=== PATIENT | female | born 1965 | race Caucasian/White ===

== ENCOUNTER 2016-10-16 09:41 | Inpatient (IN) | payer OTHER ==
[2016-10-16] VITALS (20 sets, daily range): BP systolic 95–155; BP diastolic 64–93; PULSE 56–90; RESP 13–27; Ht 160 cm; Wt 83.7 kg
[~2016-10-16] VITALS: Ht 160 cm; Wt 83.7 kg
[~2016-10-16 09:41] MED LIST: CEFAZOLIN 2 GM/50 ML (PMX) 50 ML IVPB SCH; CIPR500T4 PO; HYD25 PO; HYDR-906 PO; METO-448 PO; ONDA4TAB8 PO; SOD CHLORIDE 0.9% 1,000 ML IV SCH
--- NOTE | 2016-10-16 11:28 | RADRPT ---
PROCEDURE: XR Chest. CLINICAL INDICATION: Preop chest x-ray for cholelithiasis. TECHNIQUE: Single frontal view of the chest was obtained COMPARISON: Chest x-ray 04/27/2016. FINDINGS: The soft tissues are normal. The bony elements are normal. The cardiomediastinal silhouette, pulmo nary vasculature and hilar structures are normal. There is a left-sided aorta. The lungs are clear. The costophrenic angles are normal. IMPRESSION: 1. Normal stable chest x-ray with no evidence of active cardiopulmonary disease. RPTAT:AAJJ Physician Missy Date Time Electronically viewed and signed by Kevin Hinojosa Physician on 10/16/2016 11:28 BENI/
[2016-10-16 11:29] LABS: ADD SCAN DIFF NO
[2016-10-16] MEDS ORDERED: ACETAMINOPHEN 1000MG/100ML IV 100 ML IVPB PRN (11:30)
[2016-10-16] MEDS ORDERED: ONDANSETRON 4 MG INJ IV PRN ×2 (11:30→13:30)
[2016-10-16 11:52] LABS: BASOPHIL # 0.1 10^3/ul (0.0-0.1); EOSINOPHILS # 0.4 10^3/ul (0.0-0.5); EOSINOPHILS % 3.2 % (0.0-7.0); HEMATOCRIT 44.5 % (37.0-47.0); HEMOGLOBIN 14.9 g/dl (12.0-16.0); LYMPHOCYTES # 2.2 10^3/ul (0.8-2.9); MEAN CORPUSCULAR HEMOGLOBIN 29.9 pg (29.0-33.0); MEAN CORPUSCULAR HGB CONC 33.5 g/dl (32.0-37.0); MEAN CORPUSCULAR VOLUME 89.2 fl (82.0-101.0); MONOCYTE # 0.9 10^3/ul (0.3-0.9); MONOCYTES % 7.9 % (0.0-11.0); NEUTROPHIL # 7.5 10^3/ul (1.6-7.5); NEUTROPHILS % 67.3 % (39.0-77.0); PLATELET COUNT 657 10^3/UL (140-415); RED BLOOD COUNT 4.99 10^6/ul (4.20-5.40); RED CELL DISTRIBUTION WIDTH 14.9 % (11.5-14.5); WHITE BLOOD COUNT 11.2 10^3/ul (4.8-10.8)
[2016-10-16 12:14] LABS: CALCIUM 9.5 mg/dl (8.4-10.2); CREATININE 1.21 mg/dl (0.44-1.00); POTASSIUM 3.9 mmol/L (3.5-5.1)
[2016-10-16 12:37] LABS: PARTIAL THROMBOPLASTIN TIME 35.2 Sec (25.0-35.0); PROTIME 13.2 Sec (12.2-14.2)
[2016-10-16] MEDS ORDERED: LIDOCAINE 2% (SDV) 5 ML INJ ONE (13:29)
[2016-10-16] MEDS ORDERED: MIDAZOLAM 1 MG/ML 2 ML INJ IV PRN (13:30)
[2016-10-16] MEDS ORDERED: HYDROmorphONE (0.2 MG/ML) 10ML SYG IV PRN (13:30)
[2016-10-16] MEDS ORDERED: ROCURONIUM 50 MG INJ ONE (13:30)
[2016-10-16] MEDS ORDERED: GLYCOPYRROLATE 0.4 MG INJ ONE (13:30)
[2016-10-16] MEDS ORDERED: SUCCINYLCHOLINE CHLORIDE 100 MG/5 ML SYG IV ONE (13:30)
[2016-10-16] MEDS ORDERED: hydrALAzine 20 MG INJ IV PRN ×2 (13:30→17:30)
[2016-10-16] MEDS ORDERED: MEPERIDINE 25 MG INJ IV PRN (13:30)
[2016-10-16] MEDS ORDERED: FENTAnyl 50 MCG/ML VIAL IV PRN ×2 (13:30)
[2016-10-16] MEDS ORDERED: PROPOFOL 20 ML ONE (13:30)
[2016-10-16] MEDS ORDERED: EPHEDrine SULFATE 50 MG/5 ML SYG IV PRN (13:30)
[2016-10-16] MEDS ORDERED: NEOSTIGMINE 3 MG/3 ML SYRINGE ONE (13:30)
[2016-10-16] MEDS ORDERED: MEPERIDINE 100 MG INJ ONE (13:30)
[2016-10-16] MEDS ORDERED: DIPHENHYDRAMINE 50 MG INJ IV PRN (13:30)
[2016-10-16] MEDS ORDERED: morphine (1 MG/ML) 10ML SYRINGE IV PRN ×2 (13:30)
[2016-10-16] MEDS ORDERED: METOCLOPRAMIDE 10 MG INJ IV PRN (13:30)
[2016-10-16] MEDS ORDERED: LABETALOL HCL 20MG INJ IV PRN (13:30)
[2016-10-16] MEDS ORDERED: ONDANSETRON 4 MG INJ ONE (13:36)
[2016-10-16] MEDS ORDERED: CEFAZOLIN 1 GM INJ ONE (13:36)
[2016-10-16] MEDS ORDERED: METOCLOPRAMIDE 10 MG INJ ONE (13:36)
[2016-10-16] MEDS ORDERED: EPHEDrine SULFATE 50 MG/5 ML SYG ONE (14:11)
[2016-10-16] MEDS ORDERED: PIPER-TAZO 3.375 GM IV (PMX) 100 ML ONE (14:19)
[2016-10-16] MEDS: HYDROmorphONE (0.2 MG/ML) 10ML SYG IV PRN ×4 (15:16→15:34)
[2016-10-16] MEDS: morphine 2 MG INJ IV PRN ×2 (16:48→19:58)
[2016-10-16] MEDS: D5W-0.45 NACL + KCL 20 MEQ 1,000 ML IV SCH ×2 (19:08→19:58)
--- NOTE | 2016-10-16 23:15 | OPR ---
DATE OF OPERATION: 10/16/2016 PREOPERATIVE DIAGNOSIS: Symptomatic cholelithiasis. POSTOPERATIVE DIAGNOSIS: Acute on chronic cholelithiasis with empyema of the gallbladder. OPERATION PERFORMED: Laparoscopic cholecystectomy. ANESTHESIA: General. ANESTHESIOLOGIST: Anjum Liang MD SURGEON: Salomón Shields MD HYGIENE TEACHER: Killian Dominguez MD INDICATIONS FOR PROCEDURE: The patient is a 51-year-old female who had multiple previous episodes o f right upper quadrant pain and ultrasound confirmed distended gallbladder with stones. She was cou nseled as to the risks versus benefits of cholecystectomy. She consented and was scheduled for surg boo. DESCRIPTION OF PROCEDURE: The patient was brought to the operating theater, placed under general an esthesia. The abdomen was prepped and draped in usual sterile fashion. A 2-cm incision was made in the midline just above the umbilicus. Subcutaneous tissue was dissected with cautery down to the a nterior rectus sheath. The 0 Vicryl stay sutures were placed on either side of the linea alba. The linea alba was incised and the abdomen was entered without difficulty. Dario trocar was then plac ed in standard fashion. The abdomen was insufflated to a pressure of 14 mmHg with carbon dioxide. Laparoscope was introduced. Attention was directed to the right upper quadrant where a very distend ed gallbladder with a large stone silhouette in the neck was identified. The 3 accessory ports were then placed under direct vision in standard fashion. Through the lateral port sites, the gallbladd er was grasped at the fundus; however, maintaining the grasp was difficult due to the distention. T herefore, cholecystotomy was made and several milliliters of pus were then evacuated from the gallbl adder. A second grasper was then placed on the gallbladder neck. Gallbladder was retracted cephala d and lateral. Peritoneum overlying the gallbladder was incised both medially and laterally to faci litate mobilization of the triangle of Calot. With meticulous dissection, the cystic duct was isola roderick. Two clips were placed across it distally and it was then transected with the endovascular RUSH stapler at its junction with the neck of the gallbladder. Subsequently, cystic artery was isolated, doubly clipped, and then transected with endovascular RUSH stapler. The gallbladder was then dissec roderick out of the gallbladder fossa using cautery. Prior to final transection, irrigation and inspecti on took place. Minimal bleeding was controlled with cautery. Gallbladder was transected. Laparosc ope was moved to the 12-mm subcostal port site and the gallbladder was retrieved from the abdomen th rough the umbilical port site using the gallbladder retrieval bag. Dario trocar was placed back in the abdomen. The abdomen was reinsufflated. Laparoscope was moved back to the umbilical port site . Final irrigation and inspection took place. There was no evidence of bleeding. The 3 accessory ports were then removed under direct vision. Again, there was no evidence of bleeding. Finally, th e umbilical port was removed. The midline umbilical fascia was then reapproximated with 0 Prolene s utures in figure-of-8 fashion. All wounds were irrigated with Betadine and skin incisions were clos ed with skin veronique. The patient tolerated the procedure well. Estimated blood loss was 10 mL. T here were no complications and the patient was transported in stable condition to the recovery room. Dictated By: SALOMÓN RUTH/OLU Conf#: [id number] DID#: [id number]
[2016-10-17 00:05] VITALS: BP 127/71; RESP 18
[2016-10-17 00:10] VITALS: RESP 18
--- NOTE | 2016-10-17 01:32 | HP ---
DATE OF ADMISSION: 10/16/2016 HISTORY OF PRESENT ILLNESS: The patient is a 51-year-old female with past medical history positive for hypertension and hyperlipidemia. The patient is also with recurrent symptomatic cholel ithiasis. The patient was evaluated in surgical consultation by Dr. Shields. The patient also underw ent a cardiology clearance from Dr. Moore and was brought to the hospital and underwent lapar oscopic cholecystectomy by Dr. Shields. Postoperatively, the patient experienced significant postoper ative pain and was admitted for further evaluation and management. PAST MEDICAL HISTORY: Positive for hypertension, hyperlipidemia and renal insufficiency. According to the patient's brother, the patient was undergoing evaluation with the gyro compass tester and the urolo gist. PAST SURGICAL HISTORY: The patient denies having any surgeries in the past. FAMILY HISTORY: Noncontributory. SOCIAL HISTORY: The patient lives at home with the family. The patient denies any tobacco use, den ies any illicit drug use, denies any alcohol use. ALLERGIES: NO KNOWN ALLERGIES. HOME MEDICATIONS: Include: 1. Simvastatin. 2. Lisinopril. 3. Hydrochlorothiazide. 4. Aspirin. 5. Meclizine. REVIEW OF SYSTEMS: A 12-point review of systems is negative unless what mentioned in the HPI. PHYSICAL ASSESSMENT GENERAL: Well-developed, obese female currently awake, alert. VITAL SIGNS: Temperature is 98.3, pulse is 60, blood pressure 122/72, respiratory rate 17, oxygen s aturation 97% on room air. HEENT: Head is atraumatic, normocephalic. Pupils equal, round, reactive to light and accommodation . Oral mucosa is pink and moist. NECK: Supple. No cervical lymphadenopathy, no thyromegaly. CHEST: Lungs clear bilaterally. There are no rhonchi, wheezes, rales noted. CARDIOVASCULAR: Normal S1, S2. No murmurs, gallops, clicks, rubs noted. ABDOMEN: Status post surgery, round, soft. EXTREMITIES: There is no edema, clubbing, cyanosis. Pulses equal bilaterally 2+. SKIN: There is no rash, petechiae noted. NEUROLOGIC: Patient is awake, alert and oriented x3. No focal deficits noted. Motor strength 5/5 in all extremities. LABORATORY DATA: On admission, CBC: White blood cells 11.2, hemoglobin 14.9, hematocrit 44.5, plat elets 657. Chemistry: Sodium is 142, potassium 3.9, chloride 103, carbon dioxide 25, anion gap 18, BUN is 19, creatinine 1.21, glucose 72, calcium 9.5. PT 13.2, INR is 1, APTT 35.2. IMAGING: Normal stable chest x-ray with no evidence of active cardiopulmonary disease. ASSESSMENT AND PLAN: 1. Symptomatic cholelithiasis, status post laparoscopic cholecystectomy by Dr. Shields. We will cont inue morphine and Tylenol p.r.n. for pain and Zofran p.r.n. for nausea. Continue IV fluids. Monito r electrolytes. 2. Hypertension. We will resume patient's antihypertensive medication. Continue hydralazine p.r.n . for systolic blood pressure above 170. 3. Hyperlipidemia. Continue with statin. Continue incentive spirometer q 1 hour when patient is awake. Advance diet per surgery. Continue s equential compression device for deep venous thrombosis prophylaxis. Further recommendations based on clinical course. Plan of care discussed with Dr. Caraballo. Dictated By: IFEANYI OROPEZA QUALITY REVIEW SPECIALIST for ALEKSANDAR CARABALLO MD SR/NTS Conf#: [id number] DID#: [id number]
[2016-10-17] MEDS: morphine 2 MG INJ IV PRN ×2 (04:11→12:30)
[2016-10-17] MEDS: D5W-0.45 NACL + KCL 20 MEQ 1,000 ML IV SCH ×4 (04:11→21:15)
[2016-10-17 05:42] LABS: ADD SCAN DIFF NO
[2016-10-17 06:13] LABS: BASOPHIL # 0.1 10^3/ul (0.0-0.1); BASOPHILS % 0.4 % (0.0-2.0); EOSINOPHILS % 0.2 % (0.0-7.0); HEMATOCRIT 39.3 % (37.0-47.0); LYMPHOCYTES # 2.4 10^3/ul (0.8-2.9); LYMPHOCYTES % 13.1 % (15.0-51.0); MEAN CORPUSCULAR HEMOGLOBIN 29.8 pg (29.0-33.0); MEAN CORPUSCULAR HGB CONC 33.1 g/dl (32.0-37.0); MEAN CORPUSCULAR VOLUME 90.1 fl (82.0-101.0); MEAN PLATELET VOLUME 8.9 fl (7.4-10.4); MONOCYTE # 1.3 10^3/ul (0.3-0.9); MONOCYTES % 7.2 % (0.0-11.0); NEUTROPHIL # 14.2 10^3/ul (1.6-7.5); NEUTROPHILS % 78.7 % (39.0-77.0); PLATELET COUNT 550 10^3/UL (140-415); RED BLOOD COUNT 4.36 10^6/ul (4.20-5.40); RED CELL DISTRIBUTION WIDTH 14.9 % (11.5-14.5)
[2016-10-17 06:24] LABS: CALCIUM 8.6 mg/dl (8.4-10.2); CREATININE 1.21 mg/dl (0.44-1.00)
[2016-10-17 08:04] VITALS: BP 138/77; RESP 12
[2016-10-17] MEDS: ACETAMINOPHEN/CODEINE #3 TAB PO PRN ×2 (10:03→17:00)
[2016-10-17] MEDS: LISINOPRIL 10 MG TAB PO SCH (10:04)
--- NOTE | 2016-10-17 16:55 | PN ---
Date/Time of Note Date/Time of Note DATE: 10/17/16 TIME: 16:48 Assessment/Plan VTE Prophylaxis VTE Prophylaxis Intervention: SCD's Lines/Catheters IV Catheter Type (from [facility]): Peripheral IV Urinary Cath still in place: No Assessment/Plan Chief Complaint/Hosp Course ASSESSMENT AND PLAN: 1. Symptomatic cholelithiasis, status post laparoscopic cholecystectomy by Dr. Shields. We will continue morphine and Tylenol p.r.n. for pain and Zofran p.r.n. for nausea. Continue IV fluids. Monitor electrolytes. 2. Hypertension. Continue lisinopril and continue hydralazine p.r.n. for systolic blood pressure above 170. 3. Hyperlipidemia. Continue with statin. Continue incentive spirometer q 1 hour when patient is awake. Advance diet per surgery. Continue sequential compression device for deep venous thrombosis prophylaxis. Further recommendations based on clinical course. Plan of care discussed with Dr. Jaramillo. Problems: Subjective 24 Hr Interval Summary Free Text/Dictation Patient still has a significant amount of pain, complains of dizziness, tolerates clear liquid diet well. Exam/Review of Systems Vital Signs Vitals Vital Signs Date Time Temp Pulse Resp B/P Pulse Ox O2 Delivery O2 Flow Rate FiO2 10/17/16 08:04 98.2 75 12 138/77 95 10/17/16 00:10 Room Air 10/16/16 15:15 8.0 Intake and Output 10/16/16 10/16/16 10/17/16 15:00 23:00 07:00 Intake Total 750 ml 1625 ml Output Total 20 ml 1400 ml Balance 730 ml 225 ml Exam PHYSICAL ASSESSMENT GENERAL: Well-developed, obese female currently awake, alert. HEENT: Head is atraumatic, normocephalic. t. NECK: Supple. No cervical lymphadenopathy, no thyromegaly. CHEST: Lungs clear bilaterally. There are no rhonchi, wheezes, rales noted. CARDIOVASCULAR: Normal S1, S2. No murmurs, gallops, clicks, rubs noted. ABDOMEN: Status post surgery, round, soft. S/p surgery. EXTREMITIES: There is no edema, clubbing, cyanosis. Pulses equal bilaterally 2 +. SKIN: There is no rash, petechiae noted. NEUROLOGIC: Patient is awake, alert and oriented x3. Results Result Diagram: 10/17/16 0455 10/17/16 0455 Results 24 hrs Laboratory Tests Test 10/17/16 04:55 Anion Gap 13 Basophils # 0.1 Basophils % 0.4 Blood Urea Nitrogen 15 Calcium Level 8.6 Carbon Dioxide Level 26 Chloride Level 105 Creatinine 1.21 H Eosinophils # 0.0 Eosinophils % 0.2 Glucose Level 94 Hematocrit 39.3 Hemoglobin 13.0 Lymphocytes # 2.4 Lymphocytes % 13.1 L Mean Corpuscular Hemoglobin 29.8 Mean Corpuscular Hemoglobin Concent 33.1 Mean Corpuscular Volume 90.1 Mean Platelet Volume 8.9 Monocytes # 1.3 H Monocytes % 7.2 Neutrophils # 14.2 H Neutrophils % 78.7 H Nucleated Red Blood Cells # 0.0 Nucleated Red Blood Cells % 0.0 Platelet Count 550 H Potassium Level 4.0 Red Blood Count 4.36 Red Cell Distribution Width 14.9 H Sodium Level 140 White Blood Count 18.0 #H Medications Medications Current Medications Ondansetron HCl (Zofran Inj) 4 mg Q6H PRN IV NAUSEA AND/OR VOMITING Last administered on 10/16/16 15:09; Admin Dose 4 MG; Start 10/16/16 at 11:30 Morphine Sulfate (morphine) 2 mg Q1H PRN IV PAIN Last administered on 12:30; Admin Dose 2 MG; Start 10/16/16 at 11:30 Acetaminophen/ Codeine Phosphate 1 tab 1 tab Q6H PRN PO PAIN Last administered on 10/17/16 10:03; Admin Dose 1 TAB; Start 10/16/16 at 11:30 Acetaminophen 100 ml @ 400 mls/hr Q6H PRN IVPB PAIN; Start 10/16/16 at 11:30 Potassium Chloride/Dextrose/ Sod Cl (D5-1/2ns + KCl 20 Meq) 1,000 ml @ 125 mls/ hr Q8H IV Last administered on 10/17/16 12:30; Admin Dose 125 MLS/HR; Start at 11:08 Hydralazine HCl (Apresoline) 10 mg Q6H PRN IV SBP>170; Start 10/16/16 at 17:30 Lisinopril (Zestril) 10 mg DAILY PO Last administered on 10/17/16 10:04; Admin Dose 10 MG; Start 10/17/16 at 09:00 IFEANYI OROPEZA Oct 17, 2016 16:54
[2016-10-17] MEDS: PIPER-TAZO 3.375 GM IV (PMX) 100 ML IVPB SCH ×2 (18:27→23:55)
[2016-10-17 20:03] VITALS: BP 130/69; RESP 18
[2016-10-18] MEDS: ACETAMINOPHEN/CODEINE #3 TAB PO PRN ×3 (00:15→23:23)
[2016-10-18 00:24] VITALS: BP 150/71; RESP 20
--- NOTE | 2016-10-18 01:24 | PN ---
DATE: Postop day #1 laparoscopic cholecystectomy for acute and chronic cholecystitis and empyema of the ga llbladder. SUBJECTIVE: Patient feels very dizzy and has tolerated liquid diet, but does not have that much of an appetite. SUBJECTIVE: GENERAL: Awake, alert. VITAL SIGNS: Temperature 98.2, pulse 75 and 86, respirations 18 and 12, blood pressure 138/77, satu ration 95% on room air. ABDOMEN: Soft. Mild tenderness in right upper quadrant. LABORATORY DATA: WBC today is 18,000 with 78.7% segmented neutrophils, which is a shift to the left , hemoglobin 13, hematocrit 39.3. Electrolytes: BUN is 15, creatinine is 1.21, slightly elevated. Potassium is 4. ASSESSMENT: A 51-year-old with laparoscopic cholecystectomy done yesterday. Actually, the gallblad giuseppe was very distended and it was full of pus and there was some leakage of the pus into the periton eal cavity, which was thoroughly irrigated and and washed out, but considering today's elevati on of the leukocyte count to 18,000 and shift to the left, I am going to start the patient on antibi otic Zosyn, especially as he is feeling a little dizzy. We will keep her another day at least, see what is happening to WBC tomorrow morning and also creatinine to come back to normal. We will advan ce diet as the patient tolerates. Dictated By: GREG NAVARRO MD PS/NTS Conf#: [id number] DID#: [id number]
[2016-10-18] MEDS: D5W-0.45 NACL + KCL 20 MEQ 1,000 ML IV SCH ×2 (02:57→22:04)
[2016-10-18 05:44] LABS: ADD SCAN DIFF NO
[2016-10-18] MEDS: PIPER-TAZO 3.375 GM IV (PMX) 100 ML IVPB SCH ×4 (05:45→23:24)
[2016-10-18 05:46] LABS: BASOPHIL # 0.1 10^3/ul (0.0-0.1); BASOPHILS % 0.7 % (0.0-2.0); EOSINOPHILS # 0.4 10^3/ul (0.0-0.5); EOSINOPHILS % 3.3 % (0.0-7.0); HEMOGLOBIN 12.7 g/dl (12.0-16.0); LYMPHOCYTES # 2.7 10^3/ul (0.8-2.9); LYMPHOCYTES % 20.8 % (15.0-51.0); MEAN CORPUSCULAR HEMOGLOBIN 29.7 pg (29.0-33.0); MEAN CORPUSCULAR HGB CONC 32.6 g/dl (32.0-37.0); MEAN CORPUSCULAR VOLUME 91.3 fl (82.0-101.0); MEAN PLATELET VOLUME 8.9 fl (7.4-10.4); MONOCYTE # 1.1 10^3/ul (0.3-0.9); MONOCYTES % 8.7 % (0.0-11.0); NEUTROPHIL # 8.5 10^3/ul (1.6-7.5); PLATELET COUNT 515 10^3/UL (140-415); RED BLOOD COUNT 4.27 10^6/ul (4.20-5.40); RED CELL DISTRIBUTION WIDTH 15.2 % (11.5-14.5); WHITE BLOOD COUNT 12.8 10^3/ul (4.8-10.8)
[2016-10-18 06:12] LABS: POTASSIUM 4.3 mmol/L (3.5-5.1)
[2016-10-18 06:15] LABS: CREATININE 1.24 mg/dl (0.44-1.00)
[2016-10-18 06:16] LABS: CALCIUM 8.5 mg/dl (8.4-10.2)
--- NOTE | 2016-10-18 08:16 | RADRPT ---
Vent Rate: 63 bpm RR Interval: 0 msec OK Interval: 158 msec QRS Duration: 86 msec QT Interval: 422 msec QTC Interval: 431 msec P-R-T [place]: 51 - 54 - 63 degrees Poor data quality, interpretation may be adversely affected Normal sinus rhythm Normal ECG Electronically Signed By: Augusto Diaz [id number]
[2016-10-18] MEDS: morphine 2 MG INJ IV PRN (08:59)
[2016-10-18] MEDS: LISINOPRIL 10 MG TAB PO SCH (09:00)
--- NOTE | 2016-10-18 13:31 | PN ---
DATE: Status post laparoscopic cholecystectomy. Postoperative day #2. SUBJECTIVE: The patient feels slightly better, dizziness has decreased. The patient is tolerating more diet. No bowel movement, no passing flatus yet. OBJECTIVE: VITAL SIGNS: Temperature 98.5, heart rate 68, respirations 20, blood pressure 150/71, saturation 98% on room air. ABDOMEN: Soft, some tenderness around the umbilical incision. Bowel sounds 3+. LABORATORY: [place] [address] [place] [address] with 66% segmented. Hemoglobin 12.7. ASSESSMENT: Status post cholecystectomy for symptomatic gallstone and empyema of the gallbladder. The patient started on antibiotics yesterday. WBC has dropped. PLAN: Continue antibiotic, give the patient at least 1 more day for IV antibiotics. The patient ca n be discharged most probably tomorrow, on p.o. antibiotic and pain medication. Dictated By: GREG NAVARRO MD PS/NTS Conf#: [id number] DID#: [id number]
--- NOTE | 2016-10-18 16:18 | PN ---
Date/Time of Note Date/Time of Note DATE: 10/18/16 TIME: 16:15 Assessment/Plan VTE Prophylaxis VTE Prophylaxis Intervention: SCD's Lines/Catheters [facility] Peripheral IV Urinary Cath still in place: No Assessment/Plan Chief Complaint/Hosp Course ASSESSMENT AND PLAN: 1. Symptomatic cholelithiasis, empyema of the gallbladder, status post laparoscopic cholecystectomy by Dr. Shields. Continue IV Zosyn. Continue morphine and Tylenol p.r.n. for pain and Zofran p.r.n. for nausea. Monitor electrolytes. 2. Hypertension. Continue lisinopril and continue hydralazine p.r.n. for systolic blood pressure above 170. 3. Hyperlipidemia. Continue with statin. Continue incentive spirometer q 1 hour when patient is awake. Advance diet per surgery. Continue sequential compression device for deep venous thrombosis prophylaxis. Further recommendations based on clinical course. Plan of care discussed with Dr. Jaramillo. Problems: Subjective 24 Hr Interval Summary Free Text/Dictation Patient complains of pain, denies any N/V. Exam/Review of Systems Vital Signs Vitals Vital Signs Date Time Temp Pulse Resp B/P Pulse Ox O2 Delivery O2 Flow Rate FiO2 10/18/16 00:24 98.5 68 20 150/71 98 10/17/16 00:10 Room Air 10/16/16 15:15 8.0 Intake and Output 10/17/16 10/17/16 10/18/16 15:00 23:00 07:00 Intake Total 1350 ml 1720 ml Output Total 700 ml 1000 ml Balance 650 ml 720 ml Exam PHYSICAL ASSESSMENT GENERAL: Well-developed, obese female currently awake, alert. HEENT: Head is atraumatic, normocephalic. NECK: Supple. No cervical lymphadenopathy, no thyromegaly. CHEST: Lungs clear bilaterally. There are no rhonchi, wheezes, rales noted. CARDIOVASCULAR: Normal S1, S2. No murmurs, gallops, clicks, rubs noted. ABDOMEN: Status post surgery, round, soft. S/p surgery. EXTREMITIES: There is no edema, clubbing, cyanosis. Pulses equal bilaterally 2 +. SKIN: There is no rash, petechiae noted. NEUROLOGIC: Patient is awake, alert and oriented x3. Results Result Diagram: 10/18/16 0500 10/18/16 0500 Results 24 hrs Laboratory Tests Test 10/18/16 05:00 White Blood Count 12.8 #H Red Blood Count 4.27 Hemoglobin 12.7 Hematocrit 39.0 Mean Corpuscular Volume 91.3 Mean Corpuscular Hemoglobin 29.7 Mean Corpuscular Hemoglobin Concent 32.6 Red Cell Distribution Width 15.2 H Platelet Count 515 H Mean Platelet Volume 8.9 Neutrophils % 66.0 Lymphocytes % 20.8 Monocytes % 8.7 Eosinophils % 3.3 Basophils % 0.7 Nucleated Red Blood Cells % 0.0 Neutrophils # 8.5 H Lymphocytes # 2.7 Monocytes # 1.1 H Eosinophils # 0.4 Basophils # 0.1 Nucleated Red Blood Cells # 0.0 Sodium Level 143 Potassium Level 4.3 Chloride Level 109 Carbon Dioxide Level 23 Anion Gap 15 Blood Urea Nitrogen 13 Creatinine 1.24 H Glucose Level 77 Calcium Level 8.5 Medications Medications Current Medications Ondansetron HCl (Zofran Inj) 4 mg Q6H PRN IV NAUSEA AND/OR VOMITING Last administered on 10/16/16 15:09; Admin Dose 4 MG; Start 10/16/16 at 11:30 Morphine Sulfate (morphine) 2 mg Q1H PRN IV PAIN Last administered on 08:59; Admin Dose 2 MG; Start 10/16/16 at 11:30 Acetaminophen/ Codeine Phosphate 1 tab 1 tab Q6H PRN PO PAIN Last administered on 10/18/16 16:13; Admin Dose 1 TAB; Start 10/16/16 at 11:30 Acetaminophen 100 ml @ 400 mls/hr Q6H PRN IVPB PAIN; Start 10/16/16 at 11:30 Potassium Chloride/Dextrose/ Sod Cl (D5-1/2ns + KCl 20 Meq) 1,000 ml @ 60 mls/ hr [id number] IV Last administered on 10/18/16 02:57; Admin Dose 60 MLS/HR; Start 10/16/16 at 11:08 Hydralazine HCl (Apresoline) 10 mg Q6H PRN IV SBP>170; Start 10/16/16 at 17:30 Lisinopril 10 mg 10 mg DAILY PO Last administered on 10/18/16 09:00; Admin Dose 10 MG; Start 10/17/16 at 09:00 Piperacillin Sod/ Tazobactam Sod (Zosyn 3.375gm/ 100 ml (Pmx)) 100 ml @ 200 mls /hr Q6 IVPB Last administered on 10/18/16t 12:30; Admin Dose 200 MLS/HR; Start 10/17/16 at 18:30 IFEANYI OROPEZA Oct 18, 2016 16:18
[2016-10-18 21:13] VITALS: BP 136/78; RESP 20
[2016-10-18 23:56] VITALS: BP 149/74; RESP 20
[2016-10-19] MEDS: morphine 2 MG INJ IV PRN ×2 (03:40→14:36)
[2016-10-19 05:00] VITALS: BP 154/77; PULSE 56; RESP 18
[2016-10-19] MEDS: PIPER-TAZO 3.375 GM IV (PMX) 100 ML IVPB SCH ×4 (05:55→23:50)
[2016-10-19 08:39] VITALS: BP 129/71; RESP 18
[2016-10-19] MEDS: LISINOPRIL 10 MG TAB PO SCH (08:40)
[2016-10-19] MEDS: ACETAMINOPHEN/CODEINE #3 TAB PO PRN ×2 (08:41→17:40)
[2016-10-19] MEDS: D5W-0.45 NACL + KCL 20 MEQ 1,000 ML IV SCH ×2 (10:33→21:13)
[2016-10-19 14:39] LABS: ADD SCAN DIFF NO
--- NOTE | 2016-10-19 14:41 | PN ---
DATE: 10/19/2016 FOLLOWUP PROGRESS NOTE Postop day #3 status post laparoscopy, cholecystectomy. SUBJECTIVE: Complains of too much pain in the left lower quadrant, and also pain in the left elbow area. OBJECTIVE: Vital signs 97.9, 58, 18, 129/71 and 97% saturation. LABORATORY: No laboratory work was done today. PHYSICAL EXAMINATION: The patient has cellulitis, probably phlebitis, above the elbow anteriorly on the left side. The patient has had a bowel movement, but the left lower quadrant with severe tender ness plus/minus rebound tenderness. The other part of the belly is soft, but is tender on deep pres sure. ASSESSMENT: Patient is status post laparoscopic cholecystectomy with some leakage of the empyema of the gallbladder during the operation. Patient was kept postoperatively on antibiotics because of t he increased leukocytosis of 18,000. Yesterday it was 12,500, today we do not have it. Unfortunate ly, the patient has developed some complication of the IV site, probably superficial phlebitis of th e elbow, and it is quite swollen, tender and red. Also left lower quadrant abdominal tenderness. I cannot explain the cause of it. PLAN: 1. Will get a KUB to find out any pathology in the lower abdomen. 2. Ultrasound, venous Doppler, on the left upper extremity to rule out deep vein thrombosis. 3. Stat CBC. 4. Continue IV antibiotics. Dictated By: GREG NAVARRO MD PS/OLU Conf#: [id number] DID#: [id number]
[2016-10-19 14:44] LABS: BASOPHIL # 0.1 10^3/ul (0.0-0.1); EOSINOPHILS # 0.6 10^3/ul (0.0-0.5); EOSINOPHILS % 6.3 % (0.0-7.0); HEMATOCRIT 40.4 % (37.0-47.0); HEMOGLOBIN 13.4 g/dl (12.0-16.0); LYMPHOCYTES # 2.3 10^3/ul (0.8-2.9); LYMPHOCYTES % 24.4 % (15.0-51.0); MEAN CORPUSCULAR HEMOGLOBIN 30.3 pg (29.0-33.0); MEAN CORPUSCULAR HGB CONC 33.2 g/dl (32.0-37.0); MEAN CORPUSCULAR VOLUME 91.4 fl (82.0-101.0); MEAN PLATELET VOLUME 9.1 fl (7.4-10.4); MONOCYTE # 0.9 10^3/ul (0.3-0.9); MONOCYTES % 9.8 % (0.0-11.0); NEUTROPHIL # 5.4 10^3/ul (1.6-7.5); NEUTROPHILS % 58.1 % (39.0-77.0); PLATELET COUNT 550 10^3/UL (140-415); RED BLOOD COUNT 4.42 10^6/ul (4.20-5.40); RED CELL DISTRIBUTION WIDTH 14.6 % (11.5-14.5); WHITE BLOOD COUNT 9.4 10^3/ul (4.8-10.8)
--- NOTE | 2016-10-19 15:37 | RADRPT ---
PROCEDURE: XR Abdomen. CLINICAL INDICATION: Postop. Left lower quadrant abdomen pain. TECHNIQUE: AP supine abdomen x-ray. COMPARISON: None. FINDINGS: The bowel gas pattern is normal with no evidence of obstruction. Surgical skin veronique and clips are present in the right upper quadrant. Skin veronique are also pres ent in the mid abdomen. There are no abnormal calcifications overlying the urinary tracts. The osseus structures are unremarkable. IMPRESSION: 1. Status post recent cholecystectomy. 2. No evidence of obstruction. RPTAT: QQ .Juan Maldonado MD, MD Date Time Electronically viewed and signed by .Juan Maldonado MD, MD on 10/19/2016 15:37 .R/
--- NOTE | 2016-10-19 15:43 | RADRPT ---
PROCEDURE: US left upper extremity veins. CLINICAL INDICATION: Left arm pain and swelling. TECHNIQUE: Multiple longitudinal and transverse images of the left upper extremity venous tree was obtained with river scale, pulsed Doppler, and color Doppler imaging. COMPARISON: None available FINDINGS: The left internal jugular, subclavian, axillary, brachial, basilic, radial, and ulnar veins are mariano nt with normal flow and compressibility. There is thrombosis of the left cephalic vein with lack of flow and lack of compressibility. In add ition, the left antecubital fossa vein is also thrombosed. IMPRESSION: 1. 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 2. Otherwise normal venous system of the left upper extremity. RPTAT: QQ .Juan Maldonado MD, MD Date Time Electronically viewed and signed by .Juan Maldonado MD, MD on 10/19/2016 15:42 .R/
--- NOTE | 2016-10-19 19:35 | PN ---
Date/Time of Note Date/Time of Note DATE: 10/19/16 TIME: 19:33 Assessment/Plan VTE Prophylaxis VTE Prophylaxis Intervention: SCD's, other Lines/Catheters IV Catheter Type (from Nrsg): Peripheral IV Urinary Cath still in place: No Assessment/Plan Assessment/Plan - Symptomatic cholelithiasis, empyema of the gallbladder - status post laparoscopic cholecystectomy by Dr. Shields. - Continue IV Zosyn. Continue morphine and Tylenol p.r.n. for pain and Zofran p.r.n. for nausea. Monitor electrolytes. - Continue incentive spirometer q 1 hour when patient is awake. - Advance diet per surgery. - Hypertension. - Continue lisinopril and continue hydralazine p.r.n. for systolic blood pressure above 170. - Hyperlipidemia. Continue with statin. -LUE edema/pain- positive doppler/lauro Jaramillo - Toradol for pain - Vaginal bleeding- possible menstruation per patient - lauro Mcelroy- will take care. Continue sequential compression device for deep venous thrombosis prophylaxis. Further recommendations based on clinical course. Plan of care discussed with Dr. Jaramillo. Subjective 24 Hr Interval Summary Free Text/Dictation lying in bed, resting, family at bed side, denies any abdominal cramping, states - possible she is on her periods, dw laborist on call0 will fu. dw staff Eyes: no complaints ENT: no complaints Respiratory: no complaints Cardiovascular: no complaints Gastrointestinal: no complaints Genitourinary: no complaints Musculoskeletal: no complaints Skin: no complaints Neurologic: no complaints Exam/Review of Systems Vital Signs Vitals Vital Signs Date Time Temp Pulse Resp B/P Pulse Ox O2 Delivery O2 Flow Rate FiO2 10/19/16 08:39 97.9 58 18 129/71 97 10/19/16 05:00 Room Air 10/16/16 15:15 8.0 Intake and Output 10/18/16 10/18/16 10/19/16 15:00 23:00 07:00 Intake Total 1400 ml 2100 ml Output Total 1950 ml Balance 1400 ml 150 ml Exam Constitutional: alert, oriented, well developed Psych: nl mood/affect Head: atraumatic Eyes: EOMI Neck: non-tender Respiratory: clear to auscultation Cardiovascular: nl pulses Gastrointestinal: non-tender, other (dressing dry/intact), soft Extremities: edema Neurological: nl mental status, nl speech Lymph: nontender Results Result Diagram: 10/19/16 1415 10/18/16 0500 Results 24 hrs Laboratory Tests Test 10/19/16 14:15 White Blood Count 9.4 # Red Blood Count 4.42 Hemoglobin 13.4 Hematocrit 40.4 Mean Corpuscular Volume 91.4 Mean Corpuscular Hemoglobin 30.3 Mean Corpuscular Hemoglobin Concent 33.2 Red Cell Distribution Width 14.6 H Platelet Count 550 H Mean Platelet Volume 9.1 Neutrophils % 58.1 Lymphocytes % 24.4 Monocytes % 9.8 Eosinophils % 6.3 Basophils % 1.0 Nucleated Red Blood Cells % 0.0 Neutrophils # 5.4 Lymphocytes # 2.3 Monocytes # 0.9 Eosinophils # 0.6 H Basophils # 0.1 Nucleated Red Blood Cells # 0.0 Medications Medications Current Medications Ondansetron HCl (Zofran Inj) 4 mg Q6H PRN IV NAUSEA AND/OR VOMITING Last administered on 10/16/16 15:09; Admin Dose 4 MG; Start 10/16/16 at 11:30 Morphine Sulfate (morphine) 2 mg Q1H PRN IV PAIN Last administered on 14:36; Admin Dose 2 MG; Start 10/16/16 at 11:30 Acetaminophen/ Codeine Phosphate 1 tab 1 tab Q6H PRN PO PAIN Last administered on 10/19/16 17:40; Admin Dose 1 TAB; Start 10/16/16 at 11:30 Acetaminophen 100 ml @ 400 mls/hr Q6H PRN IVPB PAIN; Start 10/16/16 at 11:30 Potassium Chloride/Dextrose/ Sod Cl (D5-1/2ns + KCl 20 Meq) 1,000 ml @ 100 mls/ hr Q10H IV Last administered on 10/19/16 10:33; Admin Dose 100 MLS/HR; Start 10/16/16 at 11:08 Hydralazine HCl (Apresoline) 10 mg Q6H PRN IV SBP>170; Start 10/16/16 at 17:30 Lisinopril 10 mg 10 mg DAILY PO Last administered on 10/19/16 08:40; Admin Dose 10 MG; Start 10/17/16 at 09:00 Piperacillin Sod/ Tazobactam Sod (Zosyn 3.375gm/ 100 ml (Pmx)) 100 ml @ 200 mls /hr Q6 IVPB Last administered on 10/19/16t 17:41; Admin Dose 200 MLS/HR; Start 10/17/16 at 18:30 Ketorolac Tromethamine (Toradol) 15 mg Q6H PRN IV PAIN; Start 10/19/16 at 18:00 ; Stop 10/22/16 at 17:59 LISS CERVANTES Oct 19, 2016 19:35
--- NOTE | 2016-10-19 20:33 | RADRPT ---
PROCEDURE: US Pelvis. CLINICAL INDICATION: Abnormal vaginal bleeding. TECHNIQUE: The pelvis was evaluated with transabdominal sonography in the axial and sagittal plane s. The the patient refused transvaginal sonography. COMPARISON: No prior study is available for comparison. FINDINGS: Uterus: 11.5 x 4.6 x 6.2 cm. Endometrium: 9.9 mm. Right ovary: 3.1 x 1.6 x 2.6 cm. Left ovary: Not visualized. Uterine masses: None. Ovarian masses: The right ovary is normal. The left ovary is not visualized. Color Doppler and puls ed Doppler sonography demonstrate normal flow to the right ovary. Other pelvic masses: None. Free fluid: None. IMPRESSION: 1. Left ovary not visualized. 2. Otherwise normal pelvic ultrasound. RPTAT: QQ .Juan Maldonado MD, MD Date Time Electronically viewed and signed by .Juan Maldonado MD, MD on 10/19/2016 20:33 .R/
[2016-10-19 20:54] VITALS: BP 144/78; RESP 20
[2016-10-19] MEDS: KETOROLAC 15 MG INJ IV PRN (21:15)
[2016-10-20 00:27] VITALS: BP 161/80; RESP 20
[2016-10-20] MEDS: KETOROLAC 15 MG INJ IV PRN (04:33)
[2016-10-20] MEDS: ACETAMINOPHEN/CODEINE #3 TAB PO PRN ×3 (04:38→23:37)
[2016-10-20 04:56] LABS: ADD SCAN DIFF NO
[2016-10-20 05:11] LABS: POTASSIUM 4.3 mmol/L (3.5-5.1)
[2016-10-20 05:14] LABS: CREATININE 1.36 mg/dl (0.44-1.00)
[2016-10-20 05:15] LABS: CALCIUM 8.8 mg/dl (8.4-10.2)
[2016-10-20 05:25] LABS: BASOPHIL # 0.1 10^3/ul (0.0-0.1); BASOPHILS % 0.7 % (0.0-2.0); EOSINOPHILS # 0.7 10^3/ul (0.0-0.5); EOSINOPHILS % 7.3 % (0.0-7.0); HEMATOCRIT 39.4 % (37.0-47.0); HEMOGLOBIN 12.8 g/dl (12.0-16.0); LYMPHOCYTES # 2.4 10^3/ul (0.8-2.9); LYMPHOCYTES % 24.6 % (15.0-51.0); MEAN CORPUSCULAR HEMOGLOBIN 29.7 pg (29.0-33.0); MEAN CORPUSCULAR HGB CONC 32.5 g/dl (32.0-37.0); MEAN CORPUSCULAR VOLUME 91.4 fl (82.0-101.0); MEAN PLATELET VOLUME 9.2 fl (7.4-10.4); MONOCYTE # 0.9 10^3/ul (0.3-0.9); MONOCYTES % 8.9 % (0.0-11.0); NEUTROPHIL # 5.7 10^3/ul (1.6-7.5); NEUTROPHILS % 58.1 % (39.0-77.0); PLATELET COUNT 527 10^3/UL (140-415); RED BLOOD COUNT 4.31 10^6/ul (4.20-5.40); RED CELL DISTRIBUTION WIDTH 14.7 % (11.5-14.5); WHITE BLOOD COUNT 9.9 10^3/ul (4.8-10.8)
[2016-10-20] MEDS: PIPER-TAZO 3.375 GM IV (PMX) 100 ML IVPB SCH ×4 (05:29→23:36)
[2016-10-20 06:27] VITALS: BP 148/74; PULSE 56; RESP 18
[2016-10-20] MEDS: D5W-0.45 NACL + KCL 20 MEQ 1,000 ML IV SCH ×2 (06:27→08:31)
--- NOTE | 2016-10-20 07:55 | CONS ---
Date/Time of Note Date/Time of Note DATE: 10/20/16 TIME: 07:23 Consultation Date/Type/Reason Admit Date/Time Oct 19, 2016 at 17.20 Reason for Consultation this patient is a 51 yol G3, P1 AB2 who under went laparoscopic cholecystectomy for cholelithiasis and empyema We received a request for consultation for vaginal bleeding. Patient is complainin of geeraized abdominal javier Her LMP was on September 162016. Past History: Positive for hypertension, hyperlipidemia and renal insufficiency. According to the patient's brother, the patient was undergoing evaluation with the box toe maker and the urologist. On exam she is pleasant middle aged lady with complaints of abdominal pain. No organomegaly or CVA tenderness noted On pelvic exam ; She has slight vaginal bleeding Vulva and vagina are normal , cervix palpated visualized with speculum exam and in normal Evaluation of uterus and adnexa are someway difficult due to post op status abdominal tenderness. How ever uterus dies no appear to be enlarged .O Laboratory Tests Test 10/19/16 14:15 10/20/16 04:25 White Blood Count 9.410^3/ul 9.910^3/ul Red Blood Count 4.4210^6/ul 4.3110^6/ul Hemoglobin 13.4g/dl 12.8g/dl Hematocrit 40.4% 39.4% Mean Corpuscular Volume 91.4fl 91.4fl Mean Corpuscular Hemoglobin 30.3pg 29.7pg Mean Corpuscular Hemoglobin Concent 33.2g/dl 32.5g/dl Red Cell Distribution Width 14.6% 14.7% Platelet Count 17709^3/UL 22025^3/UL Mean Platelet Volume 9.1fl 9.2fl Neutrophils % 58.1% 58.1% Lymphocytes % 24.4% 24.6% Monocytes % 9.8% 8.9% Eosinophils % 6.3% 7.3% Basophils % 1.0% 0.7% Nucleated Red Blood Cells % 0.0/100WBC 0.0/100WBC Neutrophils # 5.410^3/ul 5.710^3/ul Lymphocytes # 2.310^3/ul 2.410^3/ul Monocytes # 0.910^3/ul 0.910^3/ul Eosinophils # 0.610^3/ul 0.710^3/ul Basophils # 0.110^3/ul 0.110^3/ul Nucleated Red Blood Cells # 0.010^3/ul 0.010^3/ul Sodium Level 142mmol/L Potassium Level 4.3mmol/L Chloride Level 107mmol/L Carbon Dioxide Level 24mmol/L Anion Gap 15 Blood Urea Nitrogen 14mg/dl Creatinine 1.36mg/dl Glucose Level 87mg/dl Calcium Level 8.8mg/dl Current Medications Medications (Trade) Dose Ordered Sig/Sonja Route PRN Reason Start Time Stop Time Status Last Admin Dose Admin Sodium Chloride 1,000 ml @ 75 mls/hr [id number] IV 10/16/16 07:00 10/16/16 11:14 DC Cefazolin Sodium/ Dextrose (Ancef 2 Gm/50 ml (Pmx)) 50 ml @ 100 mls/hr PREOP IVPB 10/16/16 06:00 10/16/16 12:00 DC Ondansetron HCl (Zofran Inj) 4 mg Q6H PRN IV NAUSEA AND/OR VOMITING 10/16/16 11:30 10/16/16 15:09 4 MG Morphine Sulfate (morphine) 2 mg Q1H PRN IV PAIN 10/16/16 11:30 10/19/16 14:36 2 MG Acetaminophen/ Codeine Phosphate 1 tab 1 tab Q6H PRN PO PAIN 10/16/16 11:30 10/20/16 04:38 1 TAB Acetaminophen 100 ml @ 400 mls/hr Q6H PRN IVPB PAIN 10/16/16 11:30 Potassium Chloride/Dextrose/ Sod Cl (D5-1/2ns + KCl 20 Meq) 1,000 ml @ 100 mls/hr Q10H IV 10/16/16 11:08 10/19/16 21:13 100 MLS/HR Morphine Sulfate (morphine (REC)) 2 mg PACU ORDER PRN IV PAIN LEVEL 1-5 10/16/16 13:30 10/16/16 19:00 DC Morphine Sulfate (morphine (REC)) 4 mg PACU ORDER PRN IV PAIN LEVEL 6-10 10/16/16 13:30 10/16/16 19:00 DC Hydromorphone HCl (Dilaudid (Rec)) 0.2 mg PACU ORDER PRN IV PAIN LEVEL 1-5 10/16/16 13:30 10/16/16 19:00 DC 10/16/16 15:34 0.2 MG Hydromorphone HCl (Dilaudid (Rec)) 0.4 mg PACU ORDER PRN IV PAIN LEVEL 6-10 10/16/16 13:30 10/16/16 19:00 DC Fentanyl (Sublimaze) 25 mcg PACU ORDER PRN IV PAIN LEVEL 1-5 10/16/16 13:30 10/16/16 19:00 DC Fentanyl (Sublimaze) 50 mcg PACU ODER PRN IV PAIN LEVEL 6-10 10/16/16 13:30 10/16/16 19:00 DC Ondansetron HCl (Zofran Inj) 4 mg PACU ORDER PRN IV NAUSEA AND/OR VOMITING 10/16/16 13:30 10/16/16 19:00 DC Metoclopramide HCl (Reglan) 10 mg PACU ORDER PRN IV NAUSEA AND/OR VOMITING 10/16/16 13:30 10/16/16 19:00 DC Labetalol HCl (Labetalol) 5 mg PACU ORDER PRN IV HIGH BLOOD PRESSURE 10/16/16 13:30 10/16/16 19:00 DC Hydralazine HCl (Apresoline) 5 mg PACU ORDER PRN IV HIGH BLOOD PRESSURE 10/16/16 13:30 10/16/16 19:00 DC Ephedrine Sulfate 5 mg PACU ORDER PRN IV MAP LESS THAN 60 10/16/16 13:30 10/16/16 19:00 DC Meperidine HCl (Demerol) 25 mg PACU ORDER PRN IV POST-OP RIGORS 10/16/16 13:30 10/16/16 19:00 DC 10/16/16 15:09 25 MG Diphenhydramine HCl (Benadryl) 25 mg PACU ORDER PRN IV PRURITUS 10/16/16 13:30 10/16/16 19:00 DC Midazolam HCl (Versed) 0.5 mg PACU ORDER PRN IV ANXIETY 10/16/16 13:30 10/16/16 19:00 DC Lidocaine (Xylocaine 2% (Sdv)) 100 mg STK-MED ONCE .ROUTE 10/16/16 13:29 10/16/16 13:30 DC Rocuronium [place] 50 mg 50 mg STK-MED ONCE .ROUTE 10/16/16 13:30 10/16/16 13:31 DC Propofol (Diprivan) 20 ml @ ud STK-MED ONCE .ROUTE 10/16/16 13:30 10/16/16 13:31 DC Glycopyrrolate (Robinul) 0.4 mg STK-MED ONCE .ROUTE 10/16/16 13:30 10/16/16 13:31 DC Succinylcholine Chloride (Anectine Syringe) 100 mg STK-MED ONCE IV 10/16/16 13:30 10/16/16 13:31 DC Neostigmine Methylsulfate (Neostigmine) 3 mg STK-MED ONCE .ROUTE 10/16/16 13:30 10/16/16 13:31 DC Meperidine HCl (Demerol) 100 mg STK-MED ONCE .ROUTE 10/16/16 13:30 10/16/16 13:31 DC Cefazolin Sodium (Ancef) 1 gm STK-MED ONCE .ROUTE 10/16/16 13:36 10/16/16 13:37 DC Ondansetron HCl (Zofran Inj) 4 mg STK-MED ONCE .ROUTE 10/16/16 13:36 10/16/16 13:37 DC Metoclopramide HCl (Reglan) 10 mg STK-MED ONCE .ROUTE 10/16/16 13:36 10/16/16 13:37 DC Ephedrine Sulfate 50 mg 50 mg STK-MED ONCE .ROUTE 10/16/16 14:11 10/16/16 14:12 DC Piperacillin Sod/ Tazobactam Sod (Zosyn 3.375gm/ 100 ml (Pmx)) 100 ml @ ud STK-MED ONCE .ROUTE 10/16/16 14:19 10/16/16 14:20 DC Hydralazine HCl (Apresoline) 10 mg Q6H PRN IV SBP>170 10/16/16 17:30 Lisinopril 10 mg 10 mg DAILY PO 10/17/16 09:00 10/19/16 08:40 10 MG Piperacillin Sod/ Tazobactam Sod (Zosyn 3.375gm/ 100 ml (Pmx)) 100 ml @ 200 mls/hr Q6 IVPB 10/17/16 18:30 10/20/16 05:29 200 MLS/HR Ketorolac Tromethamine (Toradol) 15 mg Q6H PRN IV PAIN 10/19/16 18:00 10/22/16 17:59 10/20/16 04:33 15 MG varies not enlarged. Eyes: no complaints, No discharge, No other, No pain, No redness, No visual change ENT: no complaints, No bleeding, No congestion, No discharge, No dysphagia, No other, No pain, No sore throat Respiratory: no complaints, No cough, No other, No pain, No pleuritic pain, No shortness of breath, No sputum, No wheezing Cardiovascular: no complaints, No chest pain, No edema, No lightheadedness, No orthopenea, No other, No palpitations, No paroxysmal nocturnal dyspnea Gastrointestinal: no complaints, pain (Generalized abdominal tenderness), No blood, No constipation, No decreased appetite, No diarrhea, No flatus, No nausea, No other, No passing stool, No vomiting Genitourinary: no complaints, other (mild menstrual flow), No bleeding, No discharge, No dysuria, No flank pain, No hematuria Musculoskeletal: no complaints, No back pain, No bone/joint pain, No neck pain, No other, No restricted range of motion, No swelling Skin: no complaints Neurologic: no complaints, No confusion, No dizziness, No focal-weakness, No headache, No other, No seizure, No syncope Endocrine: other (Regular menstrual cycles , LMP on August), No dry skin, No no complaints, No polydypsia, No polyuria, No temp intolerance Lymphatic: No adenopathy, No lymphadema, No no complaints, No other, No tender nodes Psychological: nl mood/affect, No anxiety, No confusion, No depression, No no complaints, No other, No suicidal Additional Comments With normal gynecological exam we believe this slight vaginal bleeding is part of her menstrual cycle unless proven other vise on pelvic ultrasound Please consider gynecological ultrasound study ;either with vagina or abdominal probe Social History Smoking Status: Never smoker Exam/Review of Systems Vital Signs Vitals Vital Signs Date Time Temp Pulse Resp B/P Pulse Ox O2 Delivery O2 Flow Rate FiO2 10/20/16 06:27 98.0 56 18 148/74 97 Room Air 10/16/16 15:15 8.0 Intake and Output 10/19/16 10/19/16 10/20/16 15:00 23:00 07:00 Intake Total 500 ml 720 ml 2350 ml Output Total 2150 ml Balance 500 ml 720 ml 200 ml Results Result Diagram: 10/20/16 0425 10/20/16 0425 Results 24 hrs Laboratory Tests Test 10/19/16 14:15 10/20/16 04:25 White Blood Count 9.4 # 9.9 Red Blood Count 4.42 4.31 Hemoglobin 13.4 12.8 Hematocrit 40.4 39.4 Mean Corpuscular Volume 91.4 91.4 Mean Corpuscular Hemoglobin 30.3 29.7 Mean Corpuscular Hemoglobin Concent 33.2 32.5 Red Cell Distribution Width 14.6 H 14.7 H Platelet Count 550 H 527 H Mean Platelet Volume 9.1 9.2 Neutrophils % 58.1 58.1 Lymphocytes % 24.4 24.6 Monocytes % 9.8 8.9 Eosinophils % 6.3 7.3 H Basophils % 1.0 0.7 Nucleated Red Blood Cells % 0.0 0.0 Neutrophils # 5.4 5.7 Lymphocytes # 2.3 2.4 Monocytes # 0.9 0.9 Eosinophils # 0.6 H 0.7 H Basophils # 0.1 0.1 Nucleated Red Blood Cells # 0.0 0.0 Sodium Level 142 Potassium Level 4.3 Chloride Level 107 Carbon Dioxide Level 24 Anion Gap 15 Blood Urea Nitrogen 14 Creatinine 1.36 H Glucose Level 87 Calcium Level 8.8 Medications Medications Current Medications Ondansetron HCl (Zofran Inj) 4 mg Q6H PRN IV NAUSEA AND/OR VOMITING Last administered on 10/16/16 15:09; Admin Dose 4 MG; Start 10/16/16 at 11:30 Morphine Sulfate (morphine) 2 mg Q1H PRN IV PAIN Last administered on 14:36; Admin Dose 2 MG; Start 10/16/16 at 11:30 Acetaminophen/ Codeine Phosphate 1 tab 1 tab Q6H PRN PO PAIN Last administered on 10/20/16 04:38; Admin Dose 1 TAB; Start 10/16/16 at 11:30 Acetaminophen 100 ml @ 400 mls/hr Q6H PRN IVPB PAIN; Start 10/16/16 at 11:30 Potassium Chloride/Dextrose/ Sod Cl (D5-1/2ns + KCl 20 Meq) 1,000 ml @ 100 mls/ hr Q10H IV Last administered on 10/19/16 21:13; Admin Dose 100 MLS/HR; Start 10/16/16 at 11:08 Hydralazine HCl (Apresoline) 10 mg Q6H PRN IV SBP>170; Start 10/16/16 at 17:30 Lisinopril 10 mg 10 mg DAILY PO Last administered on 10/19/16 08:40; Admin Dose 10 MG; Start 10/17/16 at 09:00 Piperacillin Sod/ Tazobactam Sod (Zosyn 3.375gm/ 100 ml (Pmx)) 100 ml @ 200 mls /hr Q6 IVPB Last administered on 10/20/16 05:29; Admin Dose 200 MLS/HR; Start 10/17/16 at 18:30 Ketorolac Tromethamine (Toradol) 15 mg Q6H PRN IV PAIN Last administered on 04:33; Admin Dose 15 MG; Start 10/19/16 at 18:00; Stop 10/22/16 at 17:59 JUAN MANUEL REVELES MD Oct 20, 2016 07:45
[2016-10-20 08:30] VITALS: BP 153/72; RESP 18
[2016-10-20] MEDS: LISINOPRIL 10 MG TAB PO SCH (08:30)
--- NOTE | 2016-10-20 10:05 | PN ---
DATE: 10/20/2016 SUBJECTIVE: Postop day #4 laparoscopic cholecystectomy. The patient feels better today. No nausea , no vomiting, no bowel movement. Still feels some dizziness. LABORATORY DATA: Creatinine has increased to 1.36. BUN is 14. WBC is 9900 with 58% segmented whic h is normal now, hemoglobin 12.8, hematocrit 39.4. IMAGING: Ultrasound of the left upper extremity reveals thrombosis of the cephalic and antecubital veins, but other deep veins are patent. Abdominal x-ray KUB did not show any gross pathology. Pelv ic ultrasound did not show left ovary (patient denies having had her left ovary surgically removed a t least as far as she can remember). ASSESSMENT: A 51-year-old patient status post laparoscopic cholecystectomy for very bad gallbladder with empyema of the gallbladder. The patient started to have high leukocyte count of 18,500 and di zziness. Antibiotics started for the patient. The patient gradually got better, but then started t o have some swelling, redness and tenderness left elbow area. Ultrasound has revealed presence of t hrombosis of the cephalic vein in that area. Also, patient was quite tender in the left lower quadr ant. Ultrasound revealed absence or at least nonvisualization of the left ovary. Right ovary is ok ay. Uterus is okay. No other pathology in the pelvis was detected by ultrasound. PLAN: 1. Continue IV antibiotics. 2. Warm soaks to the left elbow area q.i.d. for 2 hours each time. 3. Discharge planning per internal medicine. Dictated By: GREG SANTIAGO/OLU Conf#: [id number] DID#: [id number]
[2016-10-20] MEDS ORDERED: MAGNESIUM HYDROXIDE 30ML CUP PO PRN (11:00)
--- NOTE | 2016-10-20 16:57 | PN ---
Date/Time of Note Date/Time of Note DATE: 10/20/16 TIME: 16:55 Assessment/Plan VTE Prophylaxis VTE Prophylaxis Intervention: SCD's Lines/Catheters IV [facility] ([facility] Peripheral IV Urinary Cath still in place: No Assessment/Plan Chief Complaint/Hosp Course ASSESSMENT AND PLAN: 1. Symptomatic cholelithiasis, empyema of the gallbladder, status post laparoscopic cholecystectomy by Dr. Shields. Continue IV Zosyn. Continue morphine and Tylenol p.r.n. for pain and Zofran p.r.n. for nausea. Monitor electrolytes. 2. Hypertension. Continue lisinopril and continue hydralazine p.r.n. for systolic blood pressure above 170. 3. Hyperlipidemia. Continue with statin. 4. 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 Continue sequential compression device for deep venous thrombosis prophylaxis. Further recommendations based on clinical course. Plan of care discussed with Dr. Jaramillo. Problems: Subjective 24 Hr Interval Summary Free Text/Dictation Patient tolerates diet well, complaints of the left upper extremity pain and abdominal pain, remains afebrile. Exam/Review of Systems Vital Signs Vitals Vital Signs Date Time Temp Pulse Resp B/P Pulse Ox O2 Delivery O2 Flow Rate FiO2 10/20/16 08:30 98.0 51 18 153/72 99 10/20/16 06:27 Room Air 10/16/16 15:15 8.0 Intake and Output 10/19/16 10/19/16 10/20/16 15:00 23:00 07:00 Intake Total 700 ml 1720 ml 2350 ml Output Total 2150 ml Balance 700 ml 1720 ml 200 ml Exam PHYSICAL ASSESSMENT GENERAL: Well-developed, obese female currently awake, alert. HEENT: Head is atraumatic, normocephalic. NECK: Supple. No cervical lymphadenopathy, no thyromegaly. CHEST: Lungs clear bilaterally. There are no rhonchi, wheezes, rales noted. CARDIOVASCULAR: Normal S1, S2. No murmurs, gallops, clicks, rubs noted. ABDOMEN: Status post surgery, round, soft. S/p surgery. EXTREMITIES: There is no edema, clubbing, cyanosis. Pulses equal bilaterally 2 +. SKIN: There is no rash, petechiae noted. NEUROLOGIC: Patient is awake, alert and oriented x3. Results Result Diagram: 10/20/16 0425 10/20/16 0425 Results 24 hrs Laboratory Tests Test 10/20/16 04:25 White Blood Count 9.9 Red Blood Count 4.31 Hemoglobin 12.8 Hematocrit 39.4 Mean Corpuscular Volume 91.4 Mean Corpuscular Hemoglobin 29.7 Mean Corpuscular Hemoglobin Concent 32.5 Red Cell Distribution Width 14.7 H Platelet Count 527 H Mean Platelet Volume 9.2 Neutrophils % 58.1 Lymphocytes % 24.6 Monocytes % 8.9 Eosinophils % 7.3 H Basophils % 0.7 Nucleated Red Blood Cells % 0.0 Neutrophils # 5.7 Lymphocytes # 2.4 Monocytes # 0.9 Eosinophils # 0.7 H Basophils # 0.1 Nucleated Red Blood Cells # 0.0 Sodium Level 142 Potassium Level 4.3 Chloride Level 107 Carbon Dioxide Level 24 Anion Gap 15 Blood Urea Nitrogen 14 Creatinine 1.36 H Glucose Level 87 Calcium Level 8.8 Medications Medications Current Medications Ondansetron HCl (Zofran Inj) 4 mg Q6H PRN IV NAUSEA AND/OR VOMITING Last administered on 10/16/16 15:09; Admin Dose 4 MG; Start 10/16/16 at 11:30 Morphine Sulfate (morphine) 2 mg Q1H PRN IV PAIN Last administered on 14:36; Admin Dose 2 MG; Start 10/16/16 at 11:30 Acetaminophen/ Codeine Phosphate 1 tab 1 tab Q6H PRN PO PAIN Last administered on 10/20/16 04:38; Admin Dose 1 TAB; Start 10/16/16 at 11:30 Acetaminophen 100 ml @ 400 mls/hr Q6H PRN IVPB PAIN; Start 10/16/16 at 11:30 Potassium Chloride/Dextrose/ Sod Cl (D5-1/2ns + KCl 20 Meq) 1,000 ml @ 100 mls/ hr Q10H IV Last administered on 10/20/16 08:31; Admin Dose 100 MLS/HR; Start 10/16/16 at 11:08 Hydralazine HCl (Apresoline) 10 mg Q6H PRN IV SBP>170; Start 10/16/16 at 17:30 Lisinopril 10 mg 10 mg DAILY PO Last administered on 10/20/16 08:30; Admin Dose 10 MG; Start 10/17/16 at 09:00 Piperacillin Sod/ Tazobactam Sod (Zosyn 3.375gm/ 100 ml (Pmx)) 100 ml @ 200 mls /hr Q6 IVPB Last administered on 10/20/16 12:20; Admin Dose 200 MLS/HR; Start 10/17/16 at 18:30 Ketorolac Tromethamine (Toradol) 15 mg Q6H PRN IV PAIN Last administered on 04:33; Admin Dose 15 MG; Start 10/19/16 at 18:00; Stop 10/22/16 at 17:59 Magnesium Hydroxide (Milk Of Mag) 30 ml DAILY PRN PO CONSTIPATION Last administered on 10/20/16 12:20; Admin Dose 30 ML; Start 10/20/16 at 11:00 IFEANYI OROPEZA Oct 20, 2016 16:56
[2016-10-20 19:20] VITALS: BP 142/72; PULSE 68; RESP 18
[2016-10-21] MEDS: D5W-0.45 NACL + KCL 20 MEQ 1,000 ML IV SCH ×2 (02:41→11:31)
[2016-10-21 04:56] LABS: ADD SCAN DIFF NO
[2016-10-21 05:02] LABS: BASOPHIL # 0.1 10^3/ul (0.0-0.1); BASOPHILS % 0.9 % (0.0-2.0); EOSINOPHILS # 0.7 10^3/ul (0.0-0.5); EOSINOPHILS % 7.5 % (0.0-7.0); HEMATOCRIT 40.4 % (37.0-47.0); HEMOGLOBIN 13.1 g/dl (12.0-16.0); LYMPHOCYTES # 2.6 10^3/ul (0.8-2.9); LYMPHOCYTES % 26.6 % (15.0-51.0); MEAN CORPUSCULAR HEMOGLOBIN 29.5 pg (29.0-33.0); MEAN CORPUSCULAR HGB CONC 32.4 g/dl (32.0-37.0); MEAN PLATELET VOLUME 9.1 fl (7.4-10.4); MONOCYTE # 0.8 10^3/ul (0.3-0.9); MONOCYTES % 8.6 % (0.0-11.0); NEUTROPHIL # 5.5 10^3/ul (1.6-7.5); PLATELET COUNT 579 10^3/UL (140-415); RED BLOOD COUNT 4.44 10^6/ul (4.20-5.40); RED CELL DISTRIBUTION WIDTH 14.6 % (11.5-14.5); WHITE BLOOD COUNT 9.8 10^3/ul (4.8-10.8)
[2016-10-21] MEDS: PIPER-TAZO 3.375 GM IV (PMX) 100 ML IVPB SCH ×2 (05:08→11:28)
[2016-10-21 05:19] LABS: POTASSIUM 4.5 mmol/L (3.5-5.1)
[2016-10-21 05:22] LABS: CREATININE 1.33 mg/dl (0.44-1.00)
[2016-10-21] MEDS: ACETAMINOPHEN/CODEINE #3 TAB PO PRN (07:42)
[2016-10-21 08:07] VITALS: BP 178/89; RESP 22
[2016-10-21] MEDS: LISINOPRIL 10 MG TAB PO SCH (08:13)
--- NOTE | 2016-10-21 14:31 | PDOCDIS ---
Discharge Instructions CONDITION Patient Condition: Stable HOME CARE INSTRUCTIONS: Diet Instructions: RegularSpecial Diet: SOFT ACTIVITY: Activity Restrictions: Slowly Increase Activity Rest between Activity Avoid heavy lifting Bathing Restrictions: Shower FOLLOW UP/APPOINTMENTS Appointments FU with PMD X 1 week FU with surgery as recommended. Moist Heat application 3 times a day for 20 mins each. Call 911or go to the nearest hospital if symptoms get worse. Patient verbalized understanding of dc instructions. Mg Jaramillo/staff/patient. LISS CERVANTES Oct 21, 2016 14:31
[2016-10-21] MEDS ORDERED: PANT40TA3 PO (14:42)
[2016-10-21] MEDS ORDERED: HYDR-906 PO (14:42)
[2016-10-21] MEDS ORDERED: ASPI325T32 PO (14:42)
[2016-10-21] MEDS ORDERED: DOCU-144 PO (14:42)
--- NOTE | 2016-10-21 14:47 | DS ---
Date/Time of Note Date/Time of Note DATE: 10/21/16 TIME: 14:46 Discharge Summary Admission/Discharge Info Admit Date/Time Oct 20, 2016 at 08:05 Discharge Date/Time Final Diagnosis - Symptomatic cholelithiasis, empyema of the gallbladder - status post laparoscopic cholecystectomy by Dr. Shields. - Hypertension. - Hyperlipidemia. Continue with statin. -LUE edema/pain- positive doppler/lauro Jaramillo - Vaginal bleeding- possible menstruation discussed with Dr. Jaramillo. Patient Condition: Stable Hospital Course The patient is a 51-year-old female with past medical history positive for hypertension and hyperlipidemia, symptomatic cholelithiasis.symptomatic cholelithiasis. Patient was admitted for laparoscopic cholecystectomy by Dr. Shields.Postoperatively, the patient was admitted for further evaluation and management under batool Jaramillo. Ptient was cleared by surgery and mobility specialist and okdto discharge home. Patient verbalized understanding discharge instructions. lauro Jaramillo/staff/patient. Constitutional: alert, oriented, well developed Psych: nl mood/affect Head: atraumatic Eyes: EOMI Neck: non-tender Respiratory: clear to auscultation Cardiovascular: nl pulses Gastrointestinal: non-tender, other (dressing dry/intact), soft Extremities: edema Neurological: nl mental status, nl speech Lymph: nontender Home Meds Active Scripts Hydrocodone/Acetaminophen ([place] 5-325 Tablet) 1 Each Tablet, 1 EACH PO Q6, #20 TAB Prov:LISS CERVANTES 10/21/16 Pantoprazole* (Protonix*) 40 Mg Tablet., 40 MG PO DAILY, #30 TAB Prov:LISS CERVANTES 10/21/16 Docusate Sodium* (Colace*) 100 Mg Capsule, 100 MG PO DAILY, #30 CAP Prov:LISS CERVANTES 10/21/16 Aspirin* (Aspirin* EC) 325 Mg Tab, 325 MG PO DAILY, #30 TAB Prov:LISS CERVANTES 10/21/16 Ondansetron Hcl* (Zofran*) 4 Mg Tablet, 4 MG PO Q6H for NAUSEA AND/OR VOMITING, #12 TAB Prov:CHIQUIS ADKINS MD 04/24/16 Reported Medications Hydrochlorothiazide* (Hydrochlorothiazide*) 25 Mg Tab, 25 MG PO DAILY, #30 TAB 04/24/16 Metoprolol Tartrate* (Lopressor*) 25 Mg Tab, 25 MG PO BID, #60 TAB 04/24/16 Pending Labs Laboratory Tests Test 10/21/16 04:31 10/21/16 04:43 Sodium Level 142mmol/L (135-144) Potassium Level 4.5mmol/L (3.5-5.1) Chloride Level 107mmol/L (97-110) Carbon Dioxide Level 25mmol/L (21-31) Anion Gap 15 (8-16) Blood Urea Nitrogen 18mg/dl (7-20) Creatinine 1.33mg/dl (0.44-1.00) Glucose Level 84mg/dl (70-220) Calcium Level 9.0mg/dl (8.4-10.2) White Blood Count 9.810^3/ul (4.8-10.8) Red Blood Count 4.4410^6/ul (4.20-5.40) Hemoglobin 13.1g/dl (12.0-16.0) Hematocrit 40.4% (37.0-47.0) Mean Corpuscular Volume 91.0fl (82.0-101.0) Mean Corpuscular Hemoglobin 29.5pg (29.0-33.0) Mean Corpuscular Hemoglobin Concent 32.4g/dl (32.0-37.0) Red Cell Distribution Width 14.6% (11.5-14.5) Platelet Count 38498^3/UL (140-415) Mean Platelet Volume 9.1fl (7.4-10.4) Neutrophils % 56.0% (39.0-77.0) Lymphocytes % 26.6% (15.0-51.0) Monocytes % 8.6% (0.0-11.0) Eosinophils % 7.5% (0.0-7.0) Basophils % 0.9% (0.0-2.0) Nucleated Red Blood Cells % 0.0/100WBC (0.0-0.0) Neutrophils # 5.510^3/ul (1.6-7.5) Lymphocytes # 2.610^3/ul (0.8-2.9) Monocytes # 0.810^3/ul (0.3-0.9) Eosinophils # 0.710^3/ul (0.0-0.5) Basophils # 0.110^3/ul (0.0-0.1) Nucleated Red Blood Cells # 0.010^3/ul (0.0-0.0) LISS CERVANTES Oct 21, 2016 14:46
--- NOTE | 2016-10-21 16:29 | PN ---
DATE: 10/21/2016 Postop day #5 status post laparoscopic cholecystectomy SUBJECTIVE: Patient states that she feels better. No abdominal pain, has had bowel movement, also the left elbow area howard is a little bit decreased and come under control. She is using moist heat OBJECTIVE: VITAL SIGNS: Temperature 97.7, pulse 57, respirations 22, blood pressure 178/ 89, saturation 99% on room air. LABORATORIES: WBC 9800 with 56% segmented. Chemistry: Creatinine trending down from 1.36 yesterday, today is 1.33. BUN is 18. Sodium and potassium are normal. ASSESSMENT: Patient is status post laparoscopic cholecystectomy and developed high leukocyte count due to the technical problem during operation which was the indication of some pus from the gallbladder. The patient was started on antibiotic Zosyn postop. On the third postoperative day, the patient developed superficial phlebitis of the left armpit area. The patient was started on aspirin and also ____today is much better. PLAN: The patient can be discharged from surgical point of view, also from medical point of view, the patient has been discharged to apply warm soaks to the left elbow 3 times a day. Also, take aspirin by food. Patient to follow with Dr. Shields. She should call and make an appointment for followup with Dr. Shields' office next week. Dictated By: GREG SANTIAGO/OLU Conf#: [id number] DID#: [id number] MTDD
== END 2016-10-21 16:10 | disposition home or self-care (01) | DRG 988 ==
LOC: SDS 09:41 → MS1 16:05 → SDS 10-17 10:48 → MS1 10-17 10:49 → OBSVTOIN 10-20 08:05
PROVIDERS: ADMIT Surgery Surgical Oncology; ATTEND Surgery Surgical Oncology
PROC: 0FT44ZZ Resection of Gallbladder, Percutaneous Endoscopic Approach (ICD-10-PCS; principal; 2016-10-16 12:00)
DX: I82.612 Acute embolism and thrombosis of superficial veins of left upper extremity (principal); K80.12 Calculus of gallbladder with acute and chronic cholecystitis without obstruction; I10 Essential (primary) hypertension; E78.5 Hyperlipidemia, unspecified
CPT/HCPCS: 71010; 74000; 76856; 80048; 84703; 85025; 85610; 85730; 88304; 93005; 93971; G0378; J0330; J0690; J1170; J1885; J2175; J2270; J2405; J2543; J2710; J2765; J3480